=== PATIENT | female | born 1965 | race Caucasian/White ===

== ENCOUNTER 2018-07-11 08:49 | Emergency (ER) | payer BC ==
[~2018-07-11] VITALS: Ht 165.1 cm; Wt 88.0 kg
[2018-07-11 08:57] VITALS: BP 157/67
--- NOTE | 2018-07-11 09:26 | NUR ---
awaiting for provider to sign up for patient.
[2018-07-11] MEDS ORDERED: ketorolac trometh inj. 60 MG/2 ML VIAL IM ONE (10:05)
== END 2018-07-11 10:58 | disposition home or self-care (01) ==
LOC: ER 08:49
DX: R51 Headache (principal); R11.0 Nausea; G89.29 Other chronic pain; M54.2 Cervicalgia; M54.5 Low back pain
CPT/HCPCS: 70450; 96372; 99284; J1885

== ENCOUNTER 2018-07-15 08:22 | Emergency (ER) | payer BC ==
[~2018-07-15] VITALS: Ht 157.5 cm; Wt 81.8 kg
[2018-07-15 08:25] VITALS: BP 162/82
[2018-07-15] MEDS ORDERED: proCHLORperazine 10 MG/2 ml inj IV ONE (09:55)
[2018-07-15] MEDS ORDERED: normal saline 1000ML IV soln IVB ONE (09:55)
[2018-07-15] MEDS ORDERED: ketorolac tromethamine 15mg/ml inj. IV ONE (09:55)
[2018-07-15 10:21] LABS: BASOPHILS % (AUTO) 0.4 % (0-1); EOSINOPHILS % (AUTO) 0.3 % (0-6); HEMATOCRIT 39.2 % (35.0-45.0); HEMOGLOBIN 13.4 g/dl (12.0-16.0); LYMPHOCYTES # (AUTO) 1.4 X10'3 (1.1-4.8); MEAN CORPUSCULAR HEMOGLOBIN 27.6 PG (27.0-31.0); MEAN CORPUSCULAR HGB CONC 34.1 g/dL (33.0-36.5); MEAN CORPUSCULAR VOLUME 80.8 FL (78-98); MEAN PLATELET VOLUME 7.3 FL (7.4-10.4); MONOCYTES # (AUTO) 0.3 X10'3 (0-0.9); MONOCYTES % (AUTO) 4.7 % (2-12); NEUTROPHILS # (AUTO) 5.5 X10'3 (1.8-7.7); NEUTROPHILS % (AUTO) 75.6 % (42-75); PLATELET COUNT 330 X10'3 (140-440); RED BLOOD COUNT 4.85 X10'6 (4.20-5.60); RED CELL DISTRIBUTION WIDTH 14.1 % (11.5-14.5); WHITE BLOOD COUNT 7.3 X10'3 (4.5-11.0)
[2018-07-15 10:36] LABS: ALANINE AMINOTRANSFERASE 19 U/L (12-78); ALBUMIN 3.8 G/DL (3.4-5.0); ALKALINE PHOSPHATASE 55 IU/L (46-116); ANION GAP 7 (8-16); ASPARTATE AMINO TRANSFERASE 14 U/L (10-37); BILIRUBIN,TOTAL 0.4 MG/DL (0.1-1.0); BLOOD UREA NITROGEN 7 MG/DL (7-18); BUN/CREATININE RATIO 12.5 (6.6-38.0); CALCIUM 9.2 MG/DL (8.5-10.1); CHLORIDE 105 MMOL/L (99-107); CREATININE 0.56 MG/DL (0.40-0.90); GLUCOSE 108 MG/DL (70-104); POTASSIUM 4.1 MMOL/L (3.5-5.1); SODIUM 139 MMOL/L (135-145); TOTAL CARBON DIOXIDE 26.7 MMOL/L (24-32); TOTAL PROTEIN 7.6 G/DL (6.4-8.2); eGFR > 90 ML/MIN
[2018-07-15] MEDS ORDERED: METH-360 PO (11:19)
[2018-07-15] MEDS ORDERED: ONDA4TAB6 PO (11:19)
== END 2018-07-15 11:48 | disposition home or self-care (01) ==
LOC: ER 08:23
DX: R51 Headache (principal); R11.0 Nausea
CPT/HCPCS: 36415; 80053; 85025; 96374; 96375; 99283; J0780; J1885; J7030

== ENCOUNTER 2022-10-13 14:01 | Emergency (ER) | payer BC ==
[~2022-10-13] VITALS: Ht 165.1 cm; Wt 84.1 kg
[~2022-10-13 14:01] MED LIST: METH-360 PO; ONDA4TAB6 PO
[2022-10-13 14:18] VITALS: BP 146/87
== END 2022-10-13 18:33 | disposition left against medical advice (07) ==
LOC: ER 14:01
DX: R51.9 Headache, unspecified (principal); Z53.21 Procedure and treatment not carried out due to patient leaving prior to being seen by health care provider
CPT/HCPCS: 99281

== ENCOUNTER 2022-10-17 12:35 | Outpatient (CLI) | payer BC ==
[2022-10-17 13:06] LABS: BASOPHILS # (AUTO) 0.1 X10'3 (0-0.2); BASOPHILS % (AUTO) 0.7 % (0-1); EOSINOPHILS # (AUTO) 0.3 X10'3 (0-0.9); EOSINOPHILS % (AUTO) 3.4 % (0-6); HEMATOCRIT 37.1 % (35.0-45.0); HEMOGLOBIN 12.5 g/dl (12.0-16.0); LYMPHOCYTES # (AUTO) 1.9 X10'3 (1.1-4.8); LYMPHOCYTES % (AUTO) 25.9 % (21-51); MEAN CORPUSCULAR HEMOGLOBIN 27.9 PG (27.0-31.0); MEAN CORPUSCULAR HGB CONC 33.7 g/dL (33.0-36.5); MEAN CORPUSCULAR VOLUME 82.8 FL (78-98); MEAN PLATELET VOLUME 7.5 FL (7.4-10.4); MONOCYTES # (AUTO) 0.6 X10'3 (0-0.9); MONOCYTES % (AUTO) 7.9 % (2-12); NEUTROPHILS # (AUTO) 4.6 X10'3 (1.8-7.7); NEUTROPHILS % (AUTO) 62.1 % (42-75); PLATELET COUNT 332 X10'3 (140-440); RED BLOOD COUNT 4.49 X10'6 (4.20-5.60); RED CELL DISTRIBUTION WIDTH 14.3 % (11.5-14.5); WHITE BLOOD COUNT 7.4 X10'3 (4.5-11.0)
[2022-10-17 13:23] LABS: ALANINE AMINOTRANSFERASE 20 U/L (12-78); ALBUMIN 3.6 G/DL (3.4-5.0); ALKALINE PHOSPHATASE 59 IU/L (46-116); ANION GAP 7 (8-16); ASPARTATE AMINO TRANSFERASE 17 U/L (10-37); BILIRUBIN,TOTAL 0.2 MG/DL (0.1-1.0); BLOOD UREA NITROGEN 8 MG/DL (7-18); CALCIUM 8.9 MG/DL (8.5-10.1); CHLORIDE 101 MMOL/L (99-107); CREATININE 0.57 MG/DL (0.40-0.90); GLUCOSE 93 MG/DL (70-104); POTASSIUM 3.7 MMOL/L (3.5-5.1); SODIUM 139 MMOL/L (135-145); TOTAL CARBON DIOXIDE 30.7 MMOL/L (24-32); TOTAL PROTEIN 7.1 G/DL (6.4-8.2); eGFR > 90 ML/MIN
== END 2022-10-17 23:59 | disposition home or self-care (01) ==
LOC: LAB 12:35
PROVIDERS: ATTEND Family Medicine
DX: Z00.00 Encounter for general adult medical examination without abnormal findings (principal)
CPT/HCPCS: 36415; 80053; 82670; 84439; 84443; 85025

== ENCOUNTER 2023-04-19 13:33 | Outpatient (CLI) | payer BC | END 2023-04-19 23:59 | disposition home or self-care (01) | LOC: RAD 13:33 | PROVIDERS: ATTEND Family Medicine | DX: R51.9 Headache, unspecified (principal) | CPT/HCPCS: 70450 ==

== ENCOUNTER 2023-05-17 08:27 | Outpatient (CLI) | payer BC | END 2023-05-17 23:59 | disposition home or self-care (01) | LOC: RAD 08:27 | PROVIDERS: ATTEND Family Medicine | DX: D25.9 Leiomyoma of uterus, unspecified (principal); N83.291 Other ovarian cyst, right side; N93.8 Other specified abnormal uterine and vaginal bleeding | CPT/HCPCS: 76700; 76830; 76856; 93976 ==

== ENCOUNTER → 2023-06-21 | Outpatient (CLI) | payer BC ==
[2023-06-21 16:11] LABS: BASOPHILS % (AUTO) 0.5 % (0-1); EOSINOPHILS # (AUTO) 0.2 X10'3 (0-0.9); EOSINOPHILS % (AUTO) 2.3 % (0-6); HEMATOCRIT 33.4 % (35.0-45.0); HEMOGLOBIN 11.3 g/dl (12.0-16.0); LYMPHOCYTES # (AUTO) 1.9 X10'3 (1.1-4.8); LYMPHOCYTES % (AUTO) 24.2 % (21-51); MEAN CORPUSCULAR HEMOGLOBIN 27.8 PG (27.0-31.0); MEAN CORPUSCULAR HGB CONC 33.7 g/dL (33.0-36.5); MEAN CORPUSCULAR VOLUME 82.5 FL (78-98); MEAN PLATELET VOLUME 7.4 FL (7.4-10.4); MONOCYTES # (AUTO) 0.5 X10'3 (0-0.9); MONOCYTES % (AUTO) 6.3 % (2-12); NEUTROPHILS # (AUTO) 5.2 X10'3 (1.8-7.7); NEUTROPHILS % (AUTO) 66.7 % (42-75); PLATELET COUNT 308 X10'3 (140-440); RED BLOOD COUNT 4.05 X10'6 (4.20-5.60); RED CELL DISTRIBUTION WIDTH 13.8 % (11.5-14.5); WHITE BLOOD COUNT 7.8 X10'3 (4.5-11.0)
[2023-06-21 16:26] LABS: HEMOGLOBIN A1C 5.1 % (4.5-6.2)
[2023-06-21 16:33] LABS: FREE T4 (FREE THYROXINE) 0.86 NG/DL (0.73-1.40); THYROID STIMULATING HORMONE 1.05 ulU/ml (0.34-4.50)
== END | disposition home or self-care (01) ==
LOC: LAB 15:19
PROVIDERS: ATTEND Nurse Practitioner Family
DX: N93.9 Abnormal uterine and vaginal bleeding, unspecified (principal)
CPT/HCPCS: 36415; 82670; 83001; 83002; 83036; 83540; 83550; 84146; 84439; 84443; 85025

== ENCOUNTER 2023-08-21 13:27 | Outpatient (CLI) | payer BC | END 2023-08-21 23:59 | disposition home or self-care (01) | LOC: MRI 13:27 | PROVIDERS: ATTEND Family Medicine | DX: M48.07 Spinal stenosis, lumbosacral region (principal); M43.17 Spondylolisthesis, lumbosacral region; M47.816 Spondylosis without myelopathy or radiculopathy, lumbar region; M51.37 Other intervertebral disc degeneration, lumbosacral region | CPT/HCPCS: 72148 ==

== ENCOUNTER 2023-09-18 08:16 | Emergency (ER) | payer BC ==
[~2023-09-18] VITALS: Ht 165.1 cm; Wt 82.1 kg
[2023-09-18 08:22] VITALS: TEMP 99.4
[2023-09-18 09:38] LABS: URINE HCG NEGATIVE (NEG)
[2023-09-18 09:42] LABS: BILIRUBIN,URINE NEGATIVE (Neg); CLARITY,URINE SLIGHTLY CLOUDY (Clear); COLOR,URINE YELLOW (Yellow); GLUCOSE, URINE NEGATIVE (Neg); KETONES,URINE NEGATIVE (Neg); LEUKOCYTE ESTERASE ,URINE NEGATIVE (Neg); NITRITES, URINE NEGATIVE (Neg); OCCULT BLOOD,URINE TRACE-INTACT (Neg); PROTEIN,URINE NEGATIVE (Neg); UROBILINOGEN,URINE 0.2 E.U/dL (0.2-1.0)
[2023-09-18 09:45] LABS: UA COLLECTION TYPE CLN CATCH MIDSTREAM
[2023-09-18 09:54] LABS: SQUAMOUS EPITHELIAL CELL,UR FEW /LPF (FEW)
[2023-09-18 09:55] LABS: BACTERIA,URINE FEW /HPF (Neg); RBC,URINE 0-2 /HPF (0-2); WBC,URINE 0-4 /HPF (0-4)
[2023-09-18] MEDS ORDERED: ketorolac trometh. 30mg/ml inj. IV STA (09:56)
[2023-09-18] MEDS ORDERED: iohexol 300mg/ml 100ml inj. ONE (10:11)
[2023-09-18] MEDS: ketorolac tromethamine 15mg/ml inj. IV STA (10:35)
[2023-09-18] MEDS: morphine 2 MG/ML inj. syringe IV PRN (10:35)
[2023-09-18 11:06] LABS: BASOPHILS # (AUTO) 0.1 X10'3 (0-0.2); BASOPHILS % (AUTO) 0.6 % (0-1); EOSINOPHILS # (AUTO) 0.1 X10'3 (0-0.9); EOSINOPHILS % (AUTO) 0.8 % (0-6); HEMATOCRIT 37.8 % (35.0-45.0); HEMOGLOBIN 12.8 g/dl (12.0-16.0); LYMPHOCYTES # (AUTO) 1.8 X10'3 (1.1-4.8); LYMPHOCYTES % (AUTO) 19.7 % (21-51); MEAN CORPUSCULAR HEMOGLOBIN 26.5 PG (27.0-31.0); MEAN CORPUSCULAR HGB CONC 33.9 g/dL (33.0-36.5); MEAN CORPUSCULAR VOLUME 78.3 FL (78-98); MEAN PLATELET VOLUME 6.9 FL (7.4-10.4); MONOCYTES # (AUTO) 0.6 X10'3 (0-0.9); MONOCYTES % (AUTO) 7.1 % (2-12); NEUTROPHILS # (AUTO) 6.5 X10'3 (1.8-7.7); NEUTROPHILS % (AUTO) 71.8 % (42-75); PLATELET COUNT 408 X10'3 (140-440); RED BLOOD COUNT 4.83 X10'6 (4.20-5.60); RED CELL DISTRIBUTION WIDTH 16.2 % (11.5-14.5); WHITE BLOOD COUNT 9.1 X10'3 (4.5-11.0)
[2023-09-18 11:16] LABS: ALBUMIN 3.8 G/DL (3.4-5.0); ANION GAP 11 (8-16); BLOOD UREA NITROGEN 8 MG/DL (7-18); BUN/CREATININE RATIO 12.9 (10.0-20.0); CALCIUM 9.2 MG/DL (8.5-10.1); CHLORIDE 99 MMOL/L (99-107); CREATININE 0.62 MG/DL (0.40-0.90); GLUCOSE 95 MG/DL (70-104); LIPASE 21 U/L (16-77); POTASSIUM 3.3 MMOL/L (3.5-5.1); SODIUM 135 MMOL/L (135-145); TOTAL CARBON DIOXIDE 25.5 MMOL/L (24-32); eCRCL 90 ML/MIN; eGFR > 90 ML/MIN
[2023-09-18 13:34] VITALS: BP 148/85; PULSE 84; RESP 16; O2SAT 97
== END 2023-09-18 13:40 | disposition home or self-care (01) ==
LOC: ER 08:16
DX: M54.50 Low back pain, unspecified (principal); M25.552 Pain in left hip
CPT/HCPCS: 36415; 74177; 80048; 81001; 81025; 83690; 85025; 96374; 96375; 96376; 99285; J1885; J2270; J3490; Q9967

== ENCOUNTER 2023-12-20 05:47 | Inpatient (IN) | payer BC ==
[2023-12-16 11:09] LABS: BILIRUBIN,URINE NEGATIVE (Neg); CLARITY,URINE CLEAR (Clear); COLOR,URINE YELLOW (Yellow); GLUCOSE, URINE NEGATIVE (Neg); KETONES,URINE NEGATIVE (Neg); LEUKOCYTE ESTERASE ,URINE NEGATIVE (Neg); NITRITES, URINE NEGATIVE (Neg); OCCULT BLOOD,URINE MODERATE (Neg); PH,URINE 7.5 (4.8-8.0); PROTEIN,URINE NEGATIVE (Neg); UROBILINOGEN,URINE 0.2 E.U/dL (0.2-1.0)
[2023-12-16 11:14] LABS: BASOPHILS % (AUTO) 0.7 % (0-1); EOSINOPHILS # (AUTO) 0.1 X10'3 (0-0.9); EOSINOPHILS % (AUTO) 2.4 % (0-6); LYMPHOCYTES # (AUTO) 1.6 X10'3 (1.1-4.8); LYMPHOCYTES % (AUTO) 29.5 % (21-51); MEAN CORPUSCULAR HEMOGLOBIN 27.1 PG (27.0-31.0); MEAN CORPUSCULAR HGB CONC 33.1 g/dL (33.0-36.5); MEAN CORPUSCULAR VOLUME 81.6 FL (78-98); MEAN PLATELET VOLUME 7.3 FL (7.4-10.4); MONOCYTES # (AUTO) 0.4 X10'3 (0-0.9); MONOCYTES % (AUTO) 7.3 % (2-12); NEUTROPHILS # (AUTO) 3.3 X10'3 (1.8-7.7); NEUTROPHILS % (AUTO) 60.1 % (42-75); PRE OP HEMATOCRIT 36.5 % (35.0-45.0); PRE OP HEMOGLOBIN 12.1 g/dL (12.0-16.0); PRE OP PLATELET COUNT 293 X10'3 (140-440); PRE OP WHITE BLOOD COUNT 5.4 10'3 (4.8-10.8); RED BLOOD COUNT 4.48 X10'6 (4.20-5.60); RED CELL DISTRIBUTION WIDTH 15.4 % (11.5-14.5)
[2023-12-16 11:14] LABS: UA COLLECTION TYPE NON-SPECIFIED
[2023-12-16 11:15] LABS: BACTERIA,URINE NONE SEEN /HPF (Neg); SQUAMOUS EPITHELIAL CELL,UR FEW /LPF (FEW); WBC,URINE 0-4 /HPF (0-4)
[2023-12-16 11:22] LABS: HCG SERUM QL NEGATIVE
[2023-12-16 11:45] LABS: ALBUMIN 3.5 G/DL (3.4-5.0); ALBUMIN/GLOBULIN RATIO 0.9 (1.1-1.5); ALKALINE PHOSPHATASE 60 IU/L (46-116); BLOOD UREA NITROGEN 8 MG/DL (7-18); BUN/CREATININE RATIO 13.1 (10.0-20.0); CALCIUM 9.2 MG/DL (8.5-10.1); CHLORIDE 106 MMOL/L (99-107); CREATININE 0.61 MG/DL (0.40-0.90); PRE OP ALT 22 U/L (30-65); PRE OP ANION GAP 7 (8-16); PRE OP AST 18 U/L (10-37); PRE OP BILIRUB, TOTAL 0.4 MG/DL (0.0-1.0); PRE OP GLUCOSE 90 MG/DL (70-104); PRE OP POTASSIUM 3.9 MMOL/L (3.4-5.1); PRE OP SODIUM 140 MMOL/L (135-145); TOTAL CARBON DIOXIDE 26.7 MMOL/L (24-32); TOTAL PROTEIN 7.3 G/DL (6.4-8.2); eGFR > 90 ML/MIN
[2023-12-20] VITALS (19 sets, daily range): BP systolic 113–158; BP diastolic 65–92; PULSE 82–107; RESP 13–19; TEMP 97.8–98; O2SAT 91–100
[~2023-12-20] VITALS: Ht 165.1 cm; Wt 86.7 kg
[2023-12-20] MEDS: ceFOXitin 2GM-NS 100mL ADDvant 100 ML IV ONE (05:30)
[~2023-12-20 05:47] MED LIST changes: +HYDR-3973 PO; +LOSA1TAB41 PO; -METH-360 PO; -ONDA4TAB6 PO
[2023-12-20] MEDS: famotidine 20mg tablet PO ONE (06:39)
[2023-12-20] MEDS: ringers solution, lacted 1,000 ML IV SCH ×3 (06:40→11:55)
[2023-12-20] MEDS: BUPIVAcaine 2.5mg/ml inj 50ml vial (contains preservative) ONE (06:52)
[2023-12-20] MEDS: tranexamic acid 100mg/ml inj. ONE (06:52)
[2023-12-20] MEDS: vasoPRESSIN 20 units/ml inj. ONE (06:52)
[2023-12-20 07:20] LABS: HCG SERUM QL NEGATIVE
[2023-12-20] MEDS ORDERED: midazolam 1 mg/ML 2ml injection ONE (07:39)
[2023-12-20] MEDS ORDERED: fentaNYL /PF 50mcg/ml 5ml ampule ONE (07:40)
[2023-12-20] MEDS ORDERED: ondansetron/PF 4mg/2ml inj IV PRN ×2 (07:45→10:55)
[2023-12-20] MEDS ORDERED: hydrALAZINE 20mg/ml inj. IV PRN (07:45)
[2023-12-20] MEDS ORDERED: labetalol 20mg/4ml (5mg/ml) syringe IV PRN (07:45)
[2023-12-20] MEDS ORDERED: morphine 2 MG/ML inj. syringe IV PRN (07:45)
[2023-12-20] MEDS ORDERED: sevoflurane 250ml liquid IH ONE (07:45)
[2023-12-20] MEDS ORDERED: meperidine/PF 25mg/ml syringe IV PRN ×2 (07:45)
[2023-12-20] MEDS ORDERED: proCHLORperazine 10 MG/2 ml inj IV PRN (07:45)
[2023-12-20] MEDS: BUPIVACAINE liposomal/PF 13.3 MG/ML vial IM ONE (08:36)
[2023-12-20] MEDS: BUPIVAcaine/PF 2.5mg/ml (0.25%) 10ml vial ONE (08:36)
[2023-12-20] MEDS ORDERED: LIDOcaine 2% (20mg/ml) 5ml vial ONE (08:41)
[2023-12-20] MEDS ORDERED: rocuronium 10mg/ml inj IV ONE ×2 (08:41→08:48)
[2023-12-20] MEDS ORDERED: ondansetron/PF 4mg/2ml inj ONE (08:41)
[2023-12-20] MEDS ORDERED: dexamethasone sod phosphate 4mg/ml inj. ONE (08:41)
[2023-12-20] MEDS ORDERED: propofol inj 20 ML IV ONE (08:41)
[2023-12-20] MEDS ORDERED: neostigmine methylsulfate 1 MG/ML 10ml vial ONE (10:04)
[2023-12-20] MEDS ORDERED: glycopyrrolate 0.2mg/ml inj ONE (10:05)
[2023-12-20] MEDS: flumazenil 0.1 mg/ml inj. 10mL vial IV ONE (10:21)
[2023-12-20] MEDS: fluoroscein sod 10% (100mg/ml) 5ml vial ONE (10:22)
[2023-12-20] MEDS: fluoroscein sod 10% (100mg/ml) 5ml vial IJ ONE (10:30)
[2023-12-20] MEDS: acetaminophen 1,000mg/100ml IV 100 ML IV ONE (10:48)
[2023-12-20] MEDS: meperidine/PF 25mg/ml syringe IV PRN (10:48)
[2023-12-20] MEDS ORDERED: temazepam 15mg capsule PO PRN (10:55)
[2023-12-20] MEDS ORDERED: ketorolac trometh 30MG/ML vial 30 MG/ML VIAL IV PRN (10:55)
[2023-12-20] MEDS ORDERED: normal saline 500ML IV soln IV PRN (10:55)
[2023-12-20] MEDS ORDERED: diphenhydrAMINE 50 mg/ml inj IV PRN (10:55)
[2023-12-20] MEDS ORDERED: mag hydrox/Alum hydrox/simeth 30ml oral suspension PO PRN (10:55)
[2023-12-20] MEDS ORDERED: LORazepam 2 mg/ml vial IV PRN (10:55)
[2023-12-20] MEDS ORDERED: naloxone 0.4 mg/ml inj IV PRN (10:55)
[2023-12-20] MEDS: morphine 4 MG/ML inj SYRINge IV PRN (10:59)
[2023-12-20] MEDS ORDERED: HYDROmorph/NS 0.2 mg/ml PCA 100 ML IV SCH (12:05)
[2023-12-20] MEDS: HYDROmorph/NS 0.2 mg/ml PCA 100 ML IV SCH (13:00)
[2023-12-20] MEDS: simethicone 80mg chew tab PO SCH (13:00)
[2023-12-20] MEDS: docusate sod 100mg capsule PO SCH (21:00)
[2023-12-21 02:33] VITALS: BP 129/60; PULSE 93; RESP 16; TEMP 98.1; O2SAT 94
[2023-12-21] MEDS: PCA WASTE DOCUMENTATION 1 MG ML MC SCH (05:57)
[2023-12-21 06:00] VITALS: BP 110/58; PULSE 94; RESP 14; TEMP 97.6; O2SAT 97
[2023-12-21] MEDS: oxyCODONE/APAP 5-325mg tablet PO PRN (07:25)
[2023-12-21 08:00] VITALS: RESP 16; O2SAT 97
[2023-12-21 09:10] LABS: BASOPHILS % (AUTO) 0.2 % (0-1); EOSINOPHILS % (AUTO) 0.2 % (0-6); HEMATOCRIT 32.6 % (35.0-45.0); HEMOGLOBIN 11.1 g/dl (12.0-16.0); LYMPHOCYTES # (AUTO) 1.5 X10'3 (1.1-4.8); LYMPHOCYTES % (AUTO) 14.4 % (21-51); MEAN CORPUSCULAR HEMOGLOBIN 27.9 PG (27.0-31.0); MEAN CORPUSCULAR HGB CONC 34.1 g/dL (33.0-36.5); MEAN CORPUSCULAR VOLUME 81.8 FL (78-98); MEAN PLATELET VOLUME 7.9 FL (7.4-10.4); MONOCYTES # (AUTO) 0.6 X10'3 (0-0.9); MONOCYTES % (AUTO) 5.8 % (2-12); NEUTROPHILS % (AUTO) 79.4 % (42-75); PLATELET COUNT 288 X10'3 (140-440); RED BLOOD COUNT 3.98 X10'6 (4.20-5.60); WHITE BLOOD COUNT 10.1 X10'3 (4.5-11.0)
[2023-12-21 09:23] LABS: ALBUMIN 2.9 G/DL (3.4-5.0); ANION GAP 5 (8-16); BLOOD UREA NITROGEN 5 MG/DL (7-18); BUN/CREATININE RATIO 8.6 (10.0-20.0); CALCIUM 8.6 MG/DL (8.5-10.1); CHLORIDE 100 MMOL/L (99-107); CREATININE 0.58 MG/DL (0.40-0.90); GLUCOSE 115 MG/DL (70-104); POTASSIUM 3.4 MMOL/L (3.5-5.1); SODIUM 133 MMOL/L (135-145); TOTAL CARBON DIOXIDE 28.1 MMOL/L (24-32); eCRCL 96 ML/MIN; eGFR > 90 ML/MIN
[2023-12-21 10:28] VITALS: BP 120/60; PULSE 95; RESP 17; TEMP 98.2; O2SAT 97
[2023-12-21 11:43] VITALS: RESP 16
== END 2023-12-21 13:48 | disposition home or self-care (01) | DRG 743 ==
LOC: PAS IN 05:47 → SUR 3N 17:44
PROVIDERS: ADMIT Obstetrics & Gynecology; ATTEND Obstetrics & Gynecology
PROC: 0UB70ZZ Excision of Bilateral Fallopian Tubes, Open Approach (ICD-10-PCS; 2023-12-20)
PROC: 0USG0ZZ Reposition Vagina, Open Approach (ICD-10-PCS; 2023-12-20)
PROC: 0TJB8ZZ Inspection of Bladder, Via Natural or Artificial Opening Endoscopic (ICD-10-PCS; 2023-12-20)
PROC: 0UT90ZZ Resection of Uterus, Open Approach (ICD-10-PCS; principal; 2023-12-20 07:45)
DX: D25.1 Intramural leiomyoma of uterus (principal)
CPT/HCPCS: Z7506; Z7508; 36415; 80048; 80053; 81001; 82948; 84703; 85025; 86885; 86900; 86901; 93005; A4355; A4615; A4618; A6250; A6258; A7000; C1758; C9290; G0378; J0131; J0694; J1100; J1170; J2175; J2250; J2270; J2405; J2704; J2710; J3010; J3490; J7030; J7120

== ENCOUNTER → 2024-04-27 | Outpatient (CLI) | payer BC | END | disposition home or self-care (01) | LOC: RAD 13:07 | PROVIDERS: ATTEND Family Medicine | DX: M47.814 Spondylosis without myelopathy or radiculopathy, thoracic region (principal); M43.23 Fusion of spine, cervicothoracic region; M48.03 Spinal stenosis, cervicothoracic region; M54.2 Cervicalgia; M54.6 Pain in thoracic spine; Z98.890 Other specified postprocedural states | CPT/HCPCS: 72050; 72074 ==

== ENCOUNTER 2024-12-07 12:43 | Outpatient (CLI) | payer BC ==
[2024-12-07 13:05] LABS: MEAN PLATELET VOLUME 7.1 FL (7.4-10.4); RED CELL DISTRIBUTION WIDTH 13.4 % (11.5-14.5)
[2024-12-07 13:33] LABS: CREATININE 0.64 MG/DL (0.40-0.90); TOTAL CARBON DIOXIDE 29.7 MMOL/L (24-32); eGFR > 90 ML/MIN
== END 2024-12-07 23:59 | disposition home or self-care (01) ==
LOC: RAD 12:43
PROVIDERS: ATTEND Family Medicine
DX: R31.9 Hematuria, unspecified (principal); N30.90 Cystitis, unspecified without hematuria; I10 Essential (primary) hypertension; R10.2 Pelvic and perineal pain; R63.5 Abnormal weight gain
CPT/HCPCS: 36415; 80053; 84439; 84443; 85025

== ENCOUNTER → 2024-12-14 | Outpatient (CLI) | payer BC ==
--- NOTE | 2024-12-14 11:17 | RADIOLOGY REPORT ---
INDICATION: HEMATURIA, UNSPECIFIED, PELVIC AND PERINEAL PAIN TECHNIQUE: Multiple real-time sonographic images of the kidneys and bladder were obtained. COMPARISON: CT CT ABDOMEN PELVIS on DOS: 09/18/23, US ULTRASOUND PELVIS W/ORWO DPLX on DOS: 05/17/23, U S ULTRASOUND OF ABDOMEN on DOS: 05/17/23 FINDINGS: The right kidney measures 11 cm in length, which is normal in size. There is normal echogen icity of the right kidney. No hydronephrosis. The left kidney measures 11 cm in length, which is normal in size. There is normal echogenicity of th e left kidney. No hydronephrosis. No large intraluminal masses are seen in the bladder. Prior to voiding the bladder volume measures vo lume 315 cc. Following voiding, the bladder volume residual measures 19 cc. IMPRESSION: 1. Normal sonographic appearance of the kidneys. No hydronephrosis.
== END | disposition home or self-care (01) ==
LOC: RAD 08:43
PROVIDERS: ATTEND Family Medicine
DX: R31.9 Hematuria, unspecified (principal); R10.2 Pelvic and perineal pain
CPT/HCPCS: 76770

== ENCOUNTER 2025-03-22 06:34 | Day surgery (SDC) | payer BC ==
[~2025-03-22] VITALS: Ht 165.1 cm; Wt 91.4 kg
[~2025-03-22 06:34] MED LIST changes: +TIRZ10PE3 SQ; +ZOLP-679 PO; +simethicone 40mg/0.6ml oral drops 15ml PO ONE
[2025-03-22 06:48] VITALS: BP 164/88; PULSE 78; RESP 16; TEMP 97.9; O2SAT 78; O2SAT 98
--- NOTE | 2025-03-22 07:02 | ELECTROCARDIOGRAPH REPORT ---
[facility] Test Date: 2025-03-22 Test Time: 06:59:13 Pat Name: NICKOLAS HAMPTON Department: PRE/OP CARDIOLOGY [id number] Room: Gender: F Fairing Man: FRANK : 1965 Requested By: CATALINA SEGAL Order Number: [id number] Reading MD: Dr. Alejandro Kim Measurements Intervals [place] Rate: 73 P: 57 [place]: 135 QRS: 74 QRSD: 90 T: 47 QT: 397 QTc: 438 Interpretive Statements Sinus rhythm Electronically Signed On 03-22-2025 12:40:[address] Alejandro Kim Please click the below link to view image of tracing.
[2025-03-22] MEDS: ringers solution, lacted 1,000 ML IV SCH (07:03)
[2025-03-22] MEDS ORDERED: fentaNYL/PF 50MCG/1 ML 2ML syringe ONE (09:43)
[2025-03-22] MEDS ORDERED: midazolam 1 mg/ML 2ml injection ONE (09:43)
[2025-03-22] MEDS ORDERED: propofol inj 20 ML IV ONE (09:50)
[2025-03-22 10:11] VITALS: BP 121/76; PULSE 92; RESP 15; O2SAT 100
[2025-03-22 10:20] VITALS: BP 118/70; PULSE 75; RESP 15; O2SAT 99
[2025-03-22 10:30] VITALS: BP 115/59; PULSE 73; RESP 12; O2SAT 99
--- NOTE | 2025-03-23 16:45 | PATHOLOGY REPORT ---
[facility] [address] [place] [address] SURGICAL PATHOLOGY REPORT CaseNumber: [id number] Surgeon:Pascale Klein PA-C CLINICAL INFORMATION CLINICAL INFORMATION: Screening. DIAGNOSIS DIAGNOSIS: A.COLON, ASCENDING; BIOPSY - TUBULAR ADENOMAS DIAGNOSIS: B.COLON, HEPATIC FLEXURE; BIOPSY - FECAL MATERIAL ONLY DIAGNOSIS: C.COLON, SIGMOID; BIOPSY - TUBULAR ADENOMA MICROSCOPIC DESCRIPTION A. COLON, ASCENDING MICROSCOPIC DESCRIPTION: One slide is examined. Performed. B. COLON, HEPATIC FLEXURE MICROSCOPIC DESCRIPTION: One slide is examined. Performed. C. COLON, SIGMOID MICROSCOPIC DESCRIPTION: One slide is examined. Performed. GROSS DESCRIPTION A. COLON, ASCENDING GROSS DESCRIPTION: Received in a container of formalin labeled with the patient's name, number, and "ascending polyp" is a 1.1 x 0.5 x 0.5 cm aggregate of irregularly shaped pieces of duke tissue. The specimen is entirely submitted as A1. The time at which the specimen was removed was 1000. The time at which the specimen was placed in formalin was 1001. B. COLON, HEPATIC FLEXURE GROSS DESCRIPTION: Received in a container of formalin labeled with the patient's name, number, and "hepatic flexure polyp" is a 0.2 cm piece of duke material. The specimen is entirely submitted as B1. The time at which the specimen was removed was 1000. The time at which the specimen was placed in form ml was 1001. C. COLON, SIGMOID GROSS DESCRIPTION: Received in a container of formalin labeled with the patient's name, number, and "sigmoid polyp" are 2 pieces of duke tissue 0.2 and 0.4 x 0.3 x 0.2 cm. The specimen is entirely submitted as C1. The time at which the specimen was removed was 1000. The time at which the specimen was placed in formalin was 1001. Electronically signed by: Jose Clifford M.D. 03/23/2025 4:18:00 PM
== END 2025-03-22 10:31 | disposition home or self-care (01) ==
LOC: PAS 06:34
PROVIDERS: ATTEND Internal Medicine Gastroenterology
DX: Z12.11 Encounter for screening for malignant neoplasm of colon (principal); D12.2 Benign neoplasm of ascending colon; D12.5 Benign neoplasm of sigmoid colon; K63.5 Polyp of colon; K64.8 Other hemorrhoids; I10 Essential (primary) hypertension; E66.9 Obesity, unspecified; F41.9 Anxiety disorder, unspecified; M19.90 Unspecified osteoarthritis, unspecified site; Z79.2 Long term (current) use of antibiotics; Z79.891 Long term (current) use of opiate analgesic; Z79.899 Other long term (current) drug therapy; Z90.49 Acquired absence of other specified parts of digestive tract; Z98.890 Other specified postprocedural states; Z68.33 Body mass index [BMI] 33.0-33.9, adult; Z88.8 Allergy status to other drugs, medicaments and biological substances; Z80.1 Family history of malignant neoplasm of trachea, bronchus and lung; Z82.49 Family history of ischemic heart disease and other diseases of the circulatory system
CPT/HCPCS: 45385; 93005; J2250; J2704; J3010; J7120; Z7512; A4615; A4620